=== PATIENT | male | born 1960 | race Caucasian/White ===

== ENCOUNTER → 2024-07-25 11:33 | Outpatient (CLI) | payer BC, SELFPAY ==
--- NOTE | ~2024-07-25 | XR_ITS ---
Clinical Indication: Tobacco use PA and lateral views of the chest: Comparison: None Findings: The lungs are clear, without evidence of focal consolidation or pleural effusion. Cardiome diastinal silhouette is within normal limits. Bones and soft tissues are unremarkable. Impression: Normal chest. Reviewed, dictated and finalized at location . Impression: Normal chest.
== END ==
PROVIDERS: PCP Emergency Medicine; Visit Provider Emergency Medicine
DX: Z72.0 Tobacco use (principal)
CPT/HCPCS: 71046